=== PATIENT | male | born 1965 | race Caucasian/White ===

== ENCOUNTER 2020-03-24 14:50 | Emergency (ER) | payer BC ==
[2020-03-24 15:13] VITALS: O2SAT 98
[2020-03-24] MEDS ORDERED: KETOROLAC TROMETHAMINE INJ 60 MG/2 ML VIAL IM ONE (15:33)
[2020-03-24] MEDS ORDERED: HYDROcodone 10MG/APAP 325MG 1 EA TAB PO ONE (15:33)
[2020-03-24] MEDS ORDERED: CYCLOBENZAPRINE HCL 10 MG TAB PO ONE (15:34)
--- NOTE | 2020-03-24 15:43 | ED.PDOC ---
History of Present Illness - General Chief Complaint: General Stated Complaint: L sided neck pain Time Seen by Provider: 03/24/20 15:33 Additional Information: Patient is a 55-year-old male who presents to the ED with chief complaint of left-sided neck pain. 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 Pain is improved with rest worse with any kind of movement. Patient had no discrete trauma. Patient denies any radicular pain and has no weakness in his arms or legs. Patient describes the pain as a dull ache. Negative nausea, vomiting, fever, chills, headache, dizziness, chest pain, shortness of breath. Patient is otherwise asymptomatic. - History of Present Illness Allergies/Adverse Reactions: Allergies NO KNOWN ALLERGY Allergy (Verified 03/24/20 15:12) Home Medications: Ambulatory Orders Acetaminophen W/ Codeine [Tylenol W/ CODEINE #3] 1 ea PO Q6H PRN #20 03/24/20 Cyclobenzaprine HCl [Flexeril] 10 mg PO Q8H PRN #20 tab 03/24/20 Ibuprofen [Motrin] 600 mg PO Q6H PRN #20 tab 03/24/20 Review of Systems - Review of Systems Constitutional: States: no symptoms reported. Denies: chills, fever EENTM: States: no symptoms reported Respiratory: States: no symptoms reported. Denies: cough, short of breath Cardiology: States: no symptoms reported. Denies: chest pain, palpitations Gastrointestinal/Abdominal: States: no symptoms reported. Denies: abdominal pain, nausea, vomiting Genitourinary: States: no symptoms reported Musculoskeletal: States: see HPI, muscle pain. Denies: back pain, joint pain, joint swelling Skin: States: no symptoms reported. Denies: rash Neurological: States: no symptoms reported. Denies: numbness, paresthesia, tingling, tremors, weakness All other Systems: Reviewed and Negative Past Medical History (General) - Patient Medical History Hx Stroke: No Hx of COPD: No Hx Cardiac Disorders: No Hx Hypertension: Yes Hx Diabetes: No Hx Cancer: No Surgical History: other - Vaccination History Hx Tetanus, Diphtheria Vaccination: No Hx Influenza Vaccination: No Hx Pneumococcal Vaccination: No - Social History Hx Tobacco Use: No Hx Alcohol Use: Yes Hx Substance Use: No Hx Substance Use Treatment: No Hx Depression: No - Female History Patient is a Female of Child Bearing Age (10 -59 yrs old): No Patient : No Family Medical History - Family History Mother Family History: Unknown Living Status: Unknown Physical Exam - Physical Exam General Appearance: Alert, Comfortable, No apparent distress, Well Developed, Well Nourished Ears, Nose, Throat: normal ENT inspection Neck: other - Focal tenderness to palpation with muscle spasm to the left lateral neck musculature. Tenderness extends into the adjacent trapezius muscle. Negative cervical vertebral tenderness to palpation. Patient with decreased range of motion neck due to lateral neck discomfort. Normal inspection of the skin, no lesions noted. 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 Patient has no radicular symptoms to suspect nerve compression. There is no clinical concern for fracture. I have offered patient CT imaging of his neck to evaluate for occult findings but patient declines saying that he feels as if he has strained his neck and requests analgesics. He indicates that if he is not feeling better in the next day or so he will return to the ED or follow-up with his physician. Vital signs stable, patient is NAD and looks clinically well and I believe is safe for discharge with outpatient follow-up. Follow-up instructions, discharge instructions and return to ED precautions discussed with patient. Patient voices understanding and willingness to comply with instructions. All laboratory and radiographic results have been discussed with the patient, and all questions answered. Patient is happy with plan. Departure - Departure Clinical Impression: Acute cervical myofascial strain Qualifiers: Encounter type: initial encounter Qualified Code(s): S16.1XXA - Strain of mus brenna, fascia and tendon at neck level, initial encounter Time of Disposition: 15:48 Disposition: Discharge to Home or Self Care Condition: Good Departure Forms: ED Discharge - Pt. Copy, Patient Portal Self Enrollment Instructions: Cervical Muscle Strain (DC) Activity: increase activity as tolerated Referrals: JANICE WILCOX [Primary Care Provider] - 1-5 Days Prescriptions: Acetaminophen W/ Codeine [Tylenol W/ CODEINE #3] 1 ea PO Q6H PRN #20 PRN Reason: Pain Cyclobenzaprine HCl [Flexeril] 10 mg PO Q8H PRN #20 tab PRN Reason: Pain Ibuprofen [Motrin] 600 mg PO Q6H PRN #20 tab PRN Reason: Pain Home Medications: Ambulatory Orders Acetaminophen W/ Codeine [Tylenol W/ CODEINE #3] 1 ea PO Q6H PRN #20 03/24/20 Cyclobenzaprine HCl [Flexeril] 10 mg PO Q8H PRN #20 tab 03/24/20 Ibuprofen [Motrin] 600 mg PO Q6H PRN #20 tab 03/24/20
[2020-03-24 16:14] VITALS: BP 153/98; TEMP 98.1
== END 2020-03-24 16:13 | disposition home or self-care (01) ==
LOC: ER 14:50
DX: S16.1XXA Strain of muscle, fascia and tendon at neck level, initial encounter (principal); I10 Essential (primary) hypertension; X50.0XXA Overexertion from strenuous movement or load, initial encounter; Y92.9 Unspecified place or not applicable; Y93.19 Activity, other involving water and watercraft